=== PATIENT | male | born 1965 ===

== ENCOUNTER → 2025-03-16 13:26 | Outpatient (REF) | payer OTHER, SELFPAY | LOC: HWRAD 13:26 | DX: R41.3 Other amnesia (principal) | CPT/HCPCS: 70450 ==

== ENCOUNTER 2025-04-08 07:34 | Outpatient (RCR) | payer SELFPAY | END 2025-04-08 12:38 | disposition home or self-care (01) | LOC: ROT 07:34 | DX: Z02.4 Encounter for examination for driving license (principal) ==

== ENCOUNTER → 2025-06-18 09:37 | Outpatient (REF) | payer OTHER, SELFPAY | LOC: MRI 3T 09:37 | DX: R41.3 Other amnesia (principal); R41.89 Other symptoms and signs involving cognitive functions and awareness | CPT/HCPCS: 70553; A9575 ==

== ENCOUNTER 2025-09-27 06:28 | Outpatient (RCR) | payer OTHER, SELFPAY | END 2025-09-27 23:59 | disposition home or self-care (01) | LOC: RST 06:28 | PROVIDERS: ATTENDING PHYSICIAN Psychiatry & Neurology Neurology | DX: G31.09 Other frontotemporal neurocognitive disorder (principal); R47.01 Aphasia; F02.80 Dementia in other diseases classified elsewhere, unspecified severity, without behavioral disturbance, psychotic disturbance, mood disturbance, and anxiety | CPT/HCPCS: 92523 ==

== ENCOUNTER 2025-11-01 14:07 | Outpatient (RCR) | payer OTHER, SELFPAY | END 2025-11-01 23:59 | disposition home or self-care (01) | LOC: RST 14:07 | PROVIDERS: ATTENDING PHYSICIAN Psychiatry & Neurology Neurology | DX: G31.09 Other frontotemporal neurocognitive disorder (principal); R47.01 Aphasia; F02.80 Dementia in other diseases classified elsewhere, unspecified severity, without behavioral disturbance, psychotic disturbance, mood disturbance, and anxiety | CPT/HCPCS: 92507 ==